=== PATIENT | male | born 1950 | race Caucasian/White ===

== ENCOUNTER 2016-12-22 10:22 | Emergency (ER) | payer OTHER, MEDICARE, BC ==
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
== END 2016-12-22 13:18 | disposition disaster alternative care site (69) ==
LOC: GACC 10:22
DX: R07.89 Other chest pain (principal); M25.551 Pain in right hip; I10 Essential (primary) hypertension; E78.5 Hyperlipidemia, unspecified; E03.9 Hypothyroidism, unspecified; N40.0 Benign prostatic hyperplasia without lower urinary tract symptoms; Z79.899 Other long term (current) drug therapy; Z95.1 Presence of aortocoronary bypass graft; V28.4XXA Motorcycle driver injured in noncollision transport accident in traffic accident, initial encounter; Y92.410 Unspecified street and highway as the place of occurrence of the external cause

== ENCOUNTER → 2016-12-22 | Outpatient (CLI) | payer MEDICARE, BC | END | disposition disaster alternative care site (69) | LOC: GAMB 10:02 | DX: S29.9XXA Unspecified injury of thorax, initial encounter (principal); I10 Essential (primary) hypertension; M25.551 Pain in right hip; R07.9 Chest pain, unspecified; R07.81 Pleurodynia; Z79.899 Other long term (current) drug therapy; V29.3XXA Motorcycle rider (driver) (passenger) injured in unspecified nontraffic accident, initial encounter | CPT/HCPCS: A0425; A0429 ==